=== PATIENT | female | born 1975 | race Caucasian/White ===

== ENCOUNTER 2021-12-24 10:06 | Inpatient (IN) | payer SELFPAY ==
[2021-12-24 10:39] VITALS: BMI 48.3
[2021-12-24] MEDS: Ondansetron PF 4 MG/2 ML Vial IVP PRN ×2 (11:59→17:50)
[2021-12-24] MEDS ORDERED: Sildenafil Citrate 20 MG TAB PO SCH ×3 (15:00→21:00)
[2021-12-24] MEDS: Furosemide 40 MG TAB PO SCH (15:25)
[2021-12-24] MEDS ORDERED: Iopamidol 370 76% 100 ML VIAL ONE (15:43)
[2021-12-24] MEDS ORDERED: Promethazine HCl 25 MG in Sodium Chloride 0.9% 50 ML IVPB PRN (18:12)
[2021-12-24] MEDS ORDERED: Acetaminophen 650 MG/20.3 ML UDCUP PO PRN (18:12)
[2021-12-24] MEDS: Sildenafil Citrate 20 MG TAB PO SCH (22:11)
[2021-12-25] MEDS: Sildenafil Citrate 20 MG TAB PO SCH ×3 (08:39→20:30)
[2021-12-25] MEDS: Aspirin 81 mg Enteric Coated Tablet PO SCH (08:39)
[2021-12-25] MEDS: Potassium Chloride 10 MEQ TAB PO SCH (08:40)
[2021-12-25] MEDS: Furosemide 40 MG TAB PO SCH ×2 (08:40→15:49)
[2021-12-25] MEDS ORDERED: Aspirin Chewable 81 MG TAB PO SCH (09:00)
[2021-12-25] MEDS ORDERED: Communication Order-Pharmacy FS SCH (09:00)
[2021-12-26 06:10] LABS: PTT 27.3 sec (22.0-33.0); Prothrombin Time 10.8 sec (9.5-12.1)
[2021-12-26 06:15] LABS: ALT (SGPT) 33 U/L (8-55); AST (SGOT) 30 U/L (5-34); Albumin 3.8 g/dL (3.5-5.0); Alkaline Phosphatase 85 U/L (40-110); Anion Gap 16 mmol/L (10-20); BUN (Urea Nitrogen) 27 mg/dL (7.0-18.7); Bilirubin, Total 0.8 mg/dL (0.2-1.2); Calc. Creatinine Clearance 102 mL/min (70-130); Carbon Dioxide 28 mmol/L (22-29); Chloride 100 mmol/L (98-107); Estimated GFR 51; Globulin 2.9 g/dL (2.4-3.5); Glucose 86 mg/dL (70-105); Potassium 4.5 mmol/L (3.5-5.1); Protein, Total 6.7 g/dL (6.0-8.3); Sodium 139 mmol/L (136-145)
[2021-12-26 06:19] LABS: #Basophils 0.1 10x3/uL (0.0-0.2); #Eosinphils 0.2 10x3/uL (0.0-0.5); #Monocytes 0.9 10x3/uL (0.0-1.1); #Neutrophils 5.4 10x3/uL (1.5-8.4); %Basophils 0.6 % (0.0-2.0); %Eosinophils 2.2 % (0.0-6.0); %Lymphocytes 23.4 % (18.0-47.0); %Monocytes 10.5 % (0.0-10.0); Hemoglobin 15.4 g/dL (12.0-15.5); Mean Corpuscular HGB CONC 33.6 g/dL (32.0-36.0); Mean Corpuscular Hemoglobin 30.9 pg (27.0-33.0); Mean Corpuscular Volume 91.8 fl (81.6-98.3); Mean Platelet Volume 10.5 fl (7.4-10.4); Platelet Count 232 10x3/uL (150-450); RBC Distribution Width 13.5 % (11.5-14.5); Red Blood Cell (RBC) Count 4.99 10x6/uL (3.90-5.03); White Blood Cell (WBC) Count 8.6 10x3/uL (3.5-10.5)
[2021-12-26] MEDS: Sildenafil Citrate 20 MG TAB PO SCH ×3 (06:23→20:57)
[2021-12-26] MEDS: Potassium Chloride 10 MEQ TAB PO SCH (06:23)
[2021-12-26] MEDS: Aspirin 81 mg Enteric Coated Tablet PO SCH (06:24)
[2021-12-26] MEDS: Furosemide 40 MG TAB PO SCH ×2 (07:58→14:16)
[2021-12-26] MEDS ORDERED: Nitroglycerin 50 MG/250 ML BOT 0 ML ONE (08:14)
[2021-12-26] MEDS ORDERED: Heparin 10,000 UNITS/ 10 ML VIAL ONE (08:14)
[2021-12-26] MEDS ORDERED: Adenosine 6 MG/2 ML VIAL ONE (08:15)
[2021-12-26] MEDS ORDERED: Lidocaine 1% 20 ML MDV ONE ×2 (08:16→10:20)
[2021-12-26] MEDS ORDERED: Fentanyl 100 MCG/2 ML VIAL ONE (08:16)
[2021-12-26] MEDS ORDERED: Midazolam HCl 2 mg/2 ml Vial ONE ×2 (08:16→11:02)
[2021-12-26] MEDS ORDERED: Sodium Chloride 0.9% 500 ML ONE (08:17)
[2021-12-26] MEDS ORDERED: Sodium Chloride 0.9% 200 ML IV PRN (11:05)
[2021-12-26] MEDS ORDERED: Acetaminophen/Codeine 30-300mg Tablet PO PRN (11:05)
[2021-12-26] MEDS ORDERED: Iopamidol 300 61% 100 ML VIAL FS ONE (12:26)
[2021-12-26] MEDS: Acetaminophen/Codeine 30-300mg Tablet PO PRN ×2 (14:16→20:56)
[2021-12-27] MEDS: Acetaminophen/Codeine 30-300mg Tablet PO PRN (04:14)
[2021-12-27] MEDS: Sildenafil Citrate 20 MG TAB PO SCH ×3 (10:44→20:36)
[2021-12-27] MEDS: Aspirin 81 mg Enteric Coated Tablet PO SCH (10:44)
[2021-12-27] MEDS: Potassium Chloride 10 MEQ TAB PO SCH (10:45)
[2021-12-27] MEDS: Furosemide 40 MG TAB PO SCH ×2 (10:45→13:54)
[2021-12-28 05:55] LABS: ALT (SGPT) 21 U/L (8-55); AST (SGOT) 19 U/L (5-34); Albumin 3.5 g/dL (3.5-5.0); Alkaline Phosphatase 72 U/L (40-110); Anion Gap 14 mmol/L (10-20); BUN (Urea Nitrogen) 19 mg/dL (7.0-18.7); Bilirubin, Direct 0.3 mg/dL (0.1-0.3); Bilirubin, Total 0.7 mg/dL (0.2-1.2); Calc. Creatinine Clearance 144 mL/min (70-130); Calcium 8.3 mg/dL (7.8-10.44); Carbon Dioxide 29 mmol/L (22-29); Chloride 96 mmol/L (98-107); Estimated GFR 77; Glucose 107 mg/dL (70-105); Magnesium 1.6 mg/dL (1.6-2.6); Potassium 3.2 mmol/L (3.5-5.1); Sodium 136 mmol/L (136-145)
[2021-12-28 06:01] LABS: #Eosinphils 0.3 10x3/uL (0.0-0.5); #Monocytes 0.8 10x3/uL (0.0-1.1); #Neutrophils 5.3 10x3/uL (1.5-8.4); %Basophils 0.2 % (0.0-2.0); %Eosinophils 3.7 % (0.0-6.0); %Lymphocytes 19.4 % (18.0-47.0); %Monocytes 10.4 % (0.0-10.0); %Neutrophils 65.9 % (40.0-75.0); Hemoglobin 12.7 g/dL (12.0-15.5); Mean Corpuscular HGB CONC 33.1 g/dL (32.0-36.0); Mean Corpuscular Hemoglobin 30.2 pg (27.0-33.0); Mean Corpuscular Volume 91.4 fl (81.6-98.3); Mean Platelet Volume 10.7 fl (7.4-10.4); Platelet Count 189 10x3/uL (150-450); RBC Distribution Width 13.4 % (11.5-14.5); White Blood Cell (WBC) Count 8.1 10x3/uL (3.5-10.5)
[2021-12-28] MEDS ORDERED: Potassium Chloride 20 MEQ TAB PO SCH (08:00)
[2021-12-28] MEDS: Potassium Chloride 10 MEQ TAB PO SCH (08:44)
[2021-12-28] MEDS: Sildenafil Citrate 20 MG TAB PO SCH ×2 (08:45→13:13)
[2021-12-28] MEDS: Furosemide 40 MG TAB PO SCH ×2 (08:45→13:13)
[2021-12-28] MEDS: Aspirin 81 mg Enteric Coated Tablet PO SCH (08:45)
[2021-12-28] MEDS ORDERED: Enoxaparin Sodium 40 MG/0.4 ML SYRINGE SC SCH (09:00)
[2021-12-28 12:24] VITALS: BP 97/61; TEMP 97.4
== END 2021-12-28 13:17 | disposition home or self-care (01) | DRG 286 ==
LOC: INTOOBSV 10:06 → CSHTELE 10:06 → OBSVTOIN 12-25 10:59
PROVIDERS: ADMIT Hospitalist; ATTEND Family Medicine
PROC: 4A023N8 Measurement of Cardiac Sampling and Pressure, Bilateral, Percutaneous Approach (ICD-10-PCS; principal; 2021-12-26)
PROC: B2111ZZ Fluoroscopy of Multiple Coronary Arteries using Low Osmolar Contrast (ICD-10-PCS; 2021-12-26)
PROC: B2151ZZ Fluoroscopy of Left Heart using Low Osmolar Contrast (ICD-10-PCS; 2021-12-26)
DX: I27.0 Primary pulmonary hypertension (principal); J96.01 Acute respiratory failure with hypoxia; Z68.42 Body mass index [BMI] 45.0-49.9, adult; I50.32 Chronic diastolic (congestive) heart failure; I11.0 Hypertensive heart disease with heart failure; E66.01 Morbid (severe) obesity due to excess calories; F17.210 Nicotine dependence, cigarettes, uncomplicated; Z88.0 Allergy status to penicillin; Z79.82 Long term (current) use of aspirin; Z79.899 Other long term (current) drug therapy; Z90.710 Acquired absence of both cervix and uterus
CPT/HCPCS: 36415; 71275; 80048; 80053; 80076; 83735; 85025; 85610; 85730; 93306; 93460; 96374; 99152; 99153; C1751; C1769; C1887; C1894; G0378; J0153; J1644; J2250; J2405; J2550; J3010; J7030; Q9967